=== PATIENT | female | born 1945 | race Caucasian/White ===

== ENCOUNTER 2019-02-27 14:32 | Emergency (ER) | payer OTHER, SELFPAY ==
[2019-02-27 14:35] VITALS: BP 167/63; PULSE 117; RESP 18; TEMP 36.9; O2SAT 95; BMI 25.7
--- NOTE | 2019-02-27 14:48 | ED.BACK ---
HPI - Back Pain/Injury General Chief Complaint: Back Pain/Injury Stated Complaint: Muscle spasms through back and into waist Time Seen by Provider: 02/27/19 14:42 Source: patient Mode of arrival: ambulatory Limitations: no limitations History of Present Illness HPI Narrative: This is a 73-year-old female comes to the emergency department with complaint of back spasms. Patient states her upper back as well as her lower back. It is all over. Started initially in her right shoulder but now can be sometimes crossing over to the left side and vice versa. Patient describes it almost has an ex across her back but it is intermittent in various locations and then her symptoms will resolve and show up and a new spot. She states she will lay down in bed use hot packs a electric blanket and sometimes it will resolve and then she will start moving around again. She denies any new weakness other than pain with movement at times. She denies any new falls or injuries. She has had back surgery in the past but states this is not similar to that at all and it is patchy areas of pain. Related Data Previous Rx's Medication Instructions Recorded diazepam [Valium] 2 mg PO TID PRN #10 tab 02/27/19 Allergies Allergy/AdvReac Type Severity Reaction Status Date / Time Fish Containing Products Allergy Severe Anaphylaxis Verified 02/27/19 14:49 Sulfa (Sulfonamide Allergy Verified 02/27/19 14:49 Antibiotics) Review of Systems Review of Systems ROS Unobtainable: All systems reviewed & are unremarkable except as noted in HPI and below Constitutional Denies chills, Denies fever(s), Denies lethargy and Denies weakness Cardiovascular Denies chest pain, Denies edema, Denies irregular heart rhythm, Denies lightheadedness, Denies palpitations, Denies dyspnea and Denies orthopnea Respiratory Denies dyspnea Gastrointestinal Gastrointestinal: Denies abdominal pain, Denies melena, Denies hematochezia, Denies change in bowel habits, Denies diarrhea, Denies nausea and Denies vomiting Genitourinary Denies hematuria, Denies flank pain, Denies urinary incontinence and Denies urinary urgency Musculoskeletal Reports as per HPI, Denies abnormal gait, Reports back pain (all over), Reports myalgias, Reports arthralgias (shoulders, neck), Denies joint swelling, Reports limited range of motion (when in pain, but not always), Reports muscle cramps, Denies muscle weakness, Denies numbness, Denies radiating pain into limb, Reports stiffness and Denies tingling Integumentary/Breasts Denies rash, Denies unusual bruising and Denies wounds Neurologic Denies abnormal gait, Denies numbness, Denies tingling and Denies weakness Endocrine Denies palpitations [facility] Medical History (Updated 02/27/19 @ 17:09 by Luana Jacobo DO) Prediabetes (Chronic) Social History Smoking Status: Former smoker Social History Smoking Status: Former smoker Exam Narrative Exam Narrative: GEN: well nourished, well appearing elderly female, alert and oriented x 3, patient appears to be in moderate distress. HEENT: Atraumatic, pupils are equal round reactive, extraocular movements are intact, nares are clear. HEART: Regular rate and rhythm without murmur, clicks, rubs. Pulses are equal in upper extremities LUNGS:Lungs clear to auscultation, no wheezes, rales, crackles, chest moves symmetrically ABD:bowel sounds normal, soft, non-tender, no guarding, rebound, rigidity, no masses noted, no hepatosplenomegaly :No CVA tenderness BACK: No cervical, thoracic or lumbar vertebral point tenderness. Patient has decreased range of motion. Patient prefers to sit very upright. Patient's gait is [antalgic/normal]. MSCL: Non-tender, no muscle atrophy, muscles strength 5/5 upper and lower extremities, full range of motion. NEURO:CN 2-12 intact, sensation normal, reflexes 2/4 upper and lower extremities Initial Vital Signs Initial Vital Signs: Vital Signs Temperature 98.4 F 02/27/19 14:35 Pulse Rate 117 H 02/27/19 14:35 Respiratory Rate 18 02/27/19 14:35 Blood Pressure 167/63 H 02/27/19 14:35 Pulse Oximetry 95 02/27/19 14:35 Scores GCS [place] coma scale eye opening: Spontaneous [place] coma scale verbal response: Orientated [place] coma scale motor response: Obey commands Jeff coma scale total score: 15 Course Orders Ordered: ED Orders 02/27/19 15:08 XR chest 1V Stat 02/27/19 15:25 Complete Blood Count AUTO DIFF Stat Comprehensive Metabolic Panel Stat Creatine Kinase Stat Magnesium Stat Phosphorous Stat Prothrombin Time INR Stat Discontinued Medications Diazepam (Valium) 2 mg PO NOW ONE Stop: 02/27/19 15:14 Last Admin: 02/27/19 15:46 Dose: 2 mg Vital Signs - 8 hr 02/27/19 14:35 02/27/19 17:21 Temperature 98.4 F Pulse Rate 117 H 90 Respiratory Rate 18 15 Blood Pressure 167/63 H Blood Pressure [Right Arm] 149/68 H Pulse Oximetry 95 96 MDM - Back Pain/Injury Lab Data Attestation: I reviewed the patient's lab results. Result diagrams: 02/27/19 15:25 02/27/19 15:25 Lab Results 02/27/19 02/27/19 02/27/19 Range/Units 15:25 15:25 15:25 WBC 15.4 H (4.5-11.0) X10^3/uL RBC 5.06 (4.0-5.2) X10^6/uL Hgb 14.3 (12.0-16.0) g/dL Hct 43.3 (36-46) % MCV 85.5 (80-100) fL MCH 28.3 (26-34) PG MCHC 33.1 (30-36) % RDW 13.5 (11.6-14.8) % Plt Count 486 H (150-400) X10^3/uL Neut % (Auto) 77.3 H (50-75) % Lymph % (Auto) 12.3 L (25-40) % [place] % (Auto) 9.2 (3-14) % Eos % (Auto) 0.6 L (2-4) % Baso % (Auto) 0.6 (0-2) % Neut # (Auto) 77575 H (7293-4190) /uL Lymph # (Auto) 1900 (7966-0396) /uL [place] # (Auto) 1400 H (0-900) /uL Eos # (Auto) 100 (0-450) /uL Baso # (Auto) 100 (0-100) /uL PT 72.7 H (10.1-12.7) SECONDS INR 6.0 H* (0.9-1.3) Sodium 136 L (137-145) mmol/L Potassium 3.6 (3.4-5.1) mmol/L Chloride 92 L (98-107) mmol/L Carbon Dioxide 31 (22-32) mmol/L BUN 16 (7-17) mg/dL Creatinine 0.80 (0.52-1.04) mg/dL Estimated GFR > 60.0 (>60) mL/min BUN/Creatinine Ratio 20.0 (6-22) Glucose 128 H (80-110) mg/dL Calcium 10.2 (8.4-10.2) mg/dL Phosphorus 2.7 L (2.8-4.1) mg/dL Magnesium 1.8 (1.6-2.3) mg/dL Total Bilirubin 0.7 (0.2-1.3) mg/dL AST 42 H (14-36) IU/L ALT 36 (9-52) IU/L Alkaline Phosphatase 96 (38-126) U/L Total Creatine Kinase 57 (30-135) U/L Total Protein 7.9 (6.3-8.2) g/dL Albumin 4.5 (3.5-5.0) g/dL Globulin 3.4 (1.7-4.1) g/dL Albumin/Globulin Ratio 1.3 (1.0-2.8) Imaging Data Chest x-ray: Radiologist's impression: [address] [address] XRay Report Signed Patient: Gloria Obregon KMR#: [id number] : 4Acct:[id number] Age/Sex: 73 / FDate of Service: 02/27/19 Loc: ED Accession Number: [id number] Procedure: XR chest 1V Ordering Provider: Luana Jacobo D.O. PROCEDURE: XR CHEST 1V INDICATIONS: muscle spasms all over back TECHNIQUE: One view of the chest was acquired. COMPARISON: None. 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 Mammoplasty implants are incidentally noted. Lungs and pleura: Lungs are clear. No pleural effusions or pneumothorax. Mediastinum: Mediastinal contours appear normal. Heart size is normal. Atherosclerotic calcification of the aortic arch is noted. Bones and chest wall: No suspicious bony lesions. Age-appropriate bony degenerative changes are seen. Overlying soft tissues appear unremarkable. IMPRESSION: No acute cardiopulmonary process is seen. Postoperative and degenerative changes are seen. Dictated by: Montana Terrazas M.D. on 02/27/2019 at 15:10 Approved by: Montana Terrazas M.D. on 02/27/2019 at 15:11 [facility] Narrative Medical decision making narrative: Patient is complaining of significant muscle spasms but in various locations in her back and sort of muscle aching. 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 Patient has not had any acute muscle changes. She is on a statin but has been taking this for about 20 years. Patient has not had any trauma or injuries. She has history of back pain but she states this is sort of spotting in all over and is not consistent with any sort of dermatomal or nerve pattern. Plan for labs including CBC CMP CPK and Mag and Phos. Patient states she was told her Vitamin D level was toxic and she has stopped taking it. She has taken Tylenol 1000 mg twice in the past month taking codeine once. She states the codeine made her fall asleep so she isn't sure if it worked. Patient's lab work showed elevated white count of 15 with elevated platelets and drip feels of 77%. Coags show an INR of 6. Patient states her last check was 3.2 but she states that she is sensitive to dietary changes. Sodium is 136 chloride 92, her glucose is 128 with a phos of 2.7. AST is slightly elevated at 42 otherwise labs are normal. Patient's CPK is only 57. She has not had any trauma or other injuries, she does not have any neurologic changes. Her only description is spasm me discomfort throughout her back I have no source for infection or other likely causes such as bleeding that would cause these types of symptoms in such a wide range of areas on her back only. Discussed with patient she stated she would initially just decrease her Coumadin to 1 mg daily and we discussed that she really needs to stop it for at least the next 2 days. I asked her to follow up to get her INR rechecked. We did discuss that the Valium can increase her fall risk. We discussed the importance of her stopping her Coumadin with her as well as her brother. Discharge Plan Departure Patient Disposition: Home Clinical Impression: Muscle spasm of back, Supratherapeutic INR Discharge Date/Time: 02/27/19 17:29 Interventions: ED Discharge Assessment Last Done: 02/27/19 17:29 Instructions: DI for Back Spasm Activity Restrictions/Additional Instructions: Follow up with your physician in the next 2-3 days for recheck and further workup. Your INR is supratherapeutic at 6 today. Stop your Coumadin for the next 2 days, get an INR recheck and then restart as prescribed by your physician. If you hit your head, have sudden severe headaches or any other new changes return to the ER immediately for imaging. Take medication as prescribed, this medication can make you sleepy so take extra precautions to prevent falls. Do not drive, perform hazardous activities or make any major decisions while taking this medication. Return to the ER for fevers greater than 100.4 F, sudden severe headaches, altered mental status, persistent vomiting, new chest pain, shortness of breath, new weakness or numbness, loss of bowel or bladder control or other new or concerning symptoms. Prescriptions: New diazepam [Valium] 2 mg tablet 2 mg PO TID PRN (Reason: muscle spasm) Qty: 10 RF: 0
--- NOTE | 2019-02-27 15:08 | DI.RAD.S_ITS ---
PROCEDURE: XR CHEST 1V INDICATIONS: muscle spasms all over back TECHNIQUE: One view of the chest was acquired. COMPARISON: None. 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 Mammoplasty implants are incidentally noted. Lungs and pleura: Lungs are clear. No pleural effusions or pneumothorax. Mediastinum: Mediastinal contours appear normal. Heart size is normal. Atherosclerotic calcification of the aortic arch is noted. Bones and chest wall: No suspicious bony lesions. Age-appropriate bony degenerative changes are seen. Overlying soft tissues appear unremarkable. IMPRESSION: No acute cardiopulmonary process is seen. Postoperative and degenerative changes are seen. Dictated by: Montana Terrazas M.D. on 02/27/2019 at 15:10 Approved by: Montana Terrazas M.D. on 02/27/2019 at 15:11
--- NOTE | 2019-02-27 15:13 | ED_ITS ---
HPI - Back Pain/Injury General Chief Complaint: Back Pain/Injury Stated Complaint: Muscle spasms through back and into waist Time Seen by Provider: 02/27/19 14:42 Source: patient Mode of arrival: ambulatory Limitations: no limitations History of Present Illness HPI Narrative: This is a 73-year-old female comes to the emergency department with complaint of back spasms. Patient states her upper back as well as her lower back. It is all over. Started initially in her right shoulder but now can be sometimes crossing over to the left side and vice versa. Patient describes it almost has an ex across her back but it is intermittent in various locations and then her symptoms will resolve and show up and a new spot. She states she will lay down in bed use hot packs a electric blanket and sometimes it will resolve and then she will start moving around again. She denies any new weakness other than pain with movement at times. She denies any new falls or injuries. She has had back surgery in the past but states this is not similar to that at all and it is patchy areas of pain. Related Data Previous Rx's Medication Instructions Recorded diazepam [Valium] 2 mg PO TID PRN #10 tab 02/27/19 Allergies Allergy/AdvReac Type Severity Reaction Status Date / Time Fish Containing Products Allergy Severe Anaphylaxis Verified 02/27/19 14:49 Sulfa (Sulfonamide Allergy Verified 02/27/19 14:49 Antibiotics) Review of Systems Review of Systems ROS Unobtainable: All systems reviewed & are unremarkable except as noted in HPI and below Constitutional Denies chills, Denies fever(s), Denies lethargy and Denies weakness Cardiovascular Denies chest pain, Denies edema, Denies irregular heart rhythm, Denies lightheadedness, Denies palpitations, Denies dyspnea and Denies orthopnea Respiratory Denies dyspnea Gastrointestinal Gastrointestinal: Denies abdominal pain, Denies melena, Denies hematochezia, Denies change in bowel habits, Denies diarrhea, Denies nausea and Denies vomiting Genitourinary Denies hematuria, Denies flank pain, Denies urinary incontinence and Denies urinary urgency Musculoskeletal Reports as per HPI, Denies abnormal gait, Reports back pain (all over), Reports myalgias, Reports arthralgias (shoulders, neck), Denies joint swelling, Reports limited range of motion (when in pain, but not always), Reports muscle cramps, Denies muscle weakness, Denies numbness, Denies radiating pain into limb, Rep orts stiffness and Denies tingling Integumentary/Breasts Denies rash, Denies unusual bruising and Denies wounds Neurologic Denies abnormal gait, Denies numbness, Denies tingling and Denies weakness Endocrine Denies palpitations [facility] Medical History (Updated 02/27/19 @ 17:09 by Luana Jacobo DO) Prediabetes (Chronic) Social History Smoking Status: Former smoker Social History Smoking Status: Former smoker Exam Narrative Exam Narrative: GEN: well nourished, well appearing elderly female, alert and oriented x 3, patient appears to be in moderate distress. HEENT: Atraumatic, pupils are equal round reactive, extraocular movements are intact, nares are clear. HEART: Regular rate and rhythm without murmur, clicks, rubs. Pulses are equal in upper extremities LUNGS:Lungs clear to auscultation, no wheezes, rales, crackles, chest moves symmetrically ABD:bowel sounds normal, soft, non-tender, no guarding, rebound, rigidity, no masses noted, no hepatosplenomegaly :No CVA tenderness BACK: No cervical, thoracic or lumbar vertebral point tenderness. Patient has decreased range of motion. Patient prefers to sit very upright. Patient's gait is [antalgic/normal]. MSCL: Non-tender, no muscle atrophy, muscles strength 5/5 upper and lower extremities, full range of motion. NEURO:CN 2-12 intact, sensation normal, reflexes 2/4 upper and lower extremities Initial Vital Signs Initial Vital Signs: Vital Signs Temperature 98.4 F 02/27/19 14:35 Pulse Rate 117 H 02/27/19 14:35 Respiratory Rate 18 02/27/19 14:35 Blood Pressure 167/63 H 02/27/19 14:35 Pulse Oximetry 95 02/27/19 14:35 Scores GCS [place] coma scale eye opening: Spontaneous [place] coma scale verbal response: Orientated [place] coma scale motor response: Obey commands [place] coma scale total score: 15 Course Orders Ordered: ED Orders 02/27/19 15:08 XR chest 1V Stat 02/27/19 15:25 Complete Blood Count AUTO DIFF Stat Comprehensive Metabolic Panel Stat Creatine Kinase Stat Magnesium Stat Phosphorous Stat Prothrombin Time INR Stat Discontinued Medications Diazepam (Valium) 2 mg PO NOW ONE Stop: 02/27/19 15:14 Last Admin: 02/27/19 15:46 Dose: 2 mg Vital Signs - 8 hr 02/27/19 14:35 02/27/19 17:21 Temperature 98.4 F Pulse Rate 117 H 90 Respiratory Rate 18 15 Blood Pressure 167/63 H Blood Pressure [Right Arm] 149/68 H Pulse Oximetry 95 96 MDM - Back Pain/Injury Lab Data Attestation: I reviewed the patient's lab results. Result diagrams: 02/27/19 15:25 02/27/19 15:25 Lab Results 02/27/19 02/27/19 02/27/19 Range/Units 15:25 15:25 15:25 WBC 15.4 H (4.5-11.0) X10^3/uL RBC 5.06 (4.0-5.2) X10^6/uL Hgb 14.3 (12.0-16.0) g/dL Hct 43.3 (36-46) % MCV 85.5 (80-100) fL MCH 28.3 (26-34) PG MCHC 33.1 (30-36) % RDW 13.5 (11.6-14.8) % Plt Count 486 H (150-400) X10^3/uL Neut % (Auto) 77.3 H (50-75) % Lymph % (Auto) 12.3 L (25-40) % [place] % (Auto) 9.2 (3-14) % Eos % (Auto) 0.6 L (2-4) % Baso % (Auto) 0.6 (0-2) % Neut # (Auto) 84167 H (1288-4636) /uL Lymph # (Auto) 1900 (7922-3695) /uL [place] # (Auto) 1400 H (0-900) /uL Eos # (Auto) 100 (0-450) /uL Baso # (Auto) 100 (0-100) /uL PT 72.7 H (10.1-12.7) SECONDS INR 6.0 H* (0.9-1.3) Sodium 136 L (137-145) mmol/L Potassium 3.6 (3.4-5.1) mmol/L Chloride 92 L (98-107) mmol/L Carbon Dioxide 31 (22-32) mmol/L BUN 16 (7-17) mg/dL Creatinine 0.80 (0.52-1.04) mg/dL Estimated GFR > 60.0 (>60) mL/min BUN/Creatinine Ratio 20.0 (6-22) Glucose 128 H (80-110) mg/dL Calcium 10.2 (8.4-10.2) mg/dL Phosphorus 2.7 L (2.8-4.1) mg/dL Magnesium 1.8 (1.6-2.3) mg/dL Total Bilirubin 0.7 (0.2-1.3) mg/dL AST 42 H (14-36) IU/L ALT 36 (9-52) IU/L Alkaline Phosphatase 96 (38-126) U/L Total Creatine Kinase 57 (30-135) U/L Total Protein 7.9 (6.3-8.2) g/dL Albumin 4.5 (3.5-5.0) g/dL Globulin 3.4 (1.7-4.1) g/dL Albumin/Globulin Ratio 1.3 (1.0-2.8) Imaging Data Chest x-ray: Radiologist's impression: [place] [address] XRay Report Signed Patient: Gloria Obregon KMR#: [id number] : 4Acct:[id number] Age/Sex: 73 / FDate of Service: 02/27/19 Loc: ED Accession Number: [id number] Procedure: XR chest 1V Ordering Provider: Luana Jacobo D.O. PROCEDURE: XR CHEST 1V INDICATIONS: muscle spasms all over back TECHNIQUE: One view of the chest was acquired. COMPARISON: None. 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 Mammoplasty implants are incidentally noted. Lungs and pleura: Lungs are clear. No pleural effusions or pneumothorax. Mediastinum: Mediastinal contours appear normal. Heart size is normal. Atherosclerotic calcification of the aortic arch is noted. Bones and chest wall: No suspicious bony lesions. Age-appropriate bony degenerative changes are seen. Overlying soft tissues appear unremarkable. IMPRESSION: No acute cardiopulmonary process is seen. Postoperative and degenerative changes are seen. Dictated by: Montana Terrazas M.D. on 02/27/2019 at 15:10 Approved by: Montana Terrazas M.D. on 02/27/2019 at 15:11 [facility] Narrative Medical decision making narrative: Patient is complaining of significant muscle spasms but in various locations in her back and sort of muscle aching. 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 Patient has not had any acute muscle changes. She is on a statin but has been taking this for about 20 years. Patient has not had any trauma or injuries. She has history of back pain but she states this is sort of spotting in all over and is not consistent with any sort of dermatomal or nerve pattern. Plan for labs including CBC CMP CPK and Mag and Phos. Patient states she was told her Vitamin D level was toxic and she has stopped taking it. She has taken Tylenol 1000 mg twice in the past month taking codeine once. She states the codeine made her fall asleep so she isn't sure if it worked. Patient's lab work showed elevated white count of 15 with elevated platelets and drip feels of 77%. Coags show an INR of 6. Patient states her last check was 3.2 but she states that she is sensitive to dietary changes. Sodium is 136 chloride 92, her glucose is 128 with a phos of 2.7. AST is slightly elevated at 42 otherwise labs are normal. Patient's CPK is only 57. She has not had any trauma or other injuries, she does not have any neurologic changes. Her only description is spasm me discomfort throughout her back I have no source for infection or other likely causes such as bleeding that would cause these types of symptoms in such a wide range of areas on her back only. Discussed with patient she stated she would initially just decrease her Coumadin to 1 mg daily and we discussed that she really needs to stop it for at least the next 2 days. I asked her to follow up to get her INR rechecked. We did discuss that the Valium can increase her fall risk. We discussed the importance of her stopping her Coumadin with her as well as her brother. Discharge Plan Departure Patient Disposition: Home Clinical Impression: Muscle spasm of back, Supratherapeutic INR Discharge Date/Time: 02/27/19 17:29 Interventions: ED Discharge Assessment Last Done: 02/27/19 17:29 Instructions: DI for Back Spasm Activity Restrictions/Additional Instructions: Follow up with your physician in the next 2-3 days for recheck and further workup. Your INR is supratherapeutic at 6 today. Stop your Coumadin for the next 2 days, get an INR recheck and then restart as prescribed by your physician. If you hit your head, have sudden severe headaches or any other new changes return to the ER immediately for imaging. Take medication as prescribed, this medication can make you sleepy so take extra precautions to prevent falls. Do not drive, perform hazardous activities or make any major decisions while taking this medication. Return to the ER for fevers greater than 100.4 F, sudden severe headaches, altered mental status, persistent vomiting, new chest pain, shortness of breath, new weakness or numbness, loss of bowel or bladder control or other new or concerning symptoms. Prescriptions: New diazepam [Valium] 2 mg tablet 2 mg PO TID PRN (Reason: muscle spasm) Qty: 10 RF: 0
[2019-02-27 15:36] LABS: Add Manual Diff / Slide Review NO; Basophils Absolute Auto 100 /uL (0-100); Basophils Percent Auto 0.6 % (0-2); Eosinophils Absolute Auto 100 /uL (0-450); Eosinophils Percent Auto 0.6 % (2-4); Hematocrit 43.3 % (36-46); Hemoglobin 14.3 g/dL (12.0-16.0); Lymphocytes Absolute Auto 1900 /uL (1100-4500); Lymphocytes Percent Auto 12.3 % (25-40); Mean Corpuscular HGB Conc 33.1 % (30-36); Mean Corpuscular Hemoglobin 28.3 PG (26-34); Mean Corpuscular Volume 85.5 fL (80-100); Monocytes Absolute Auto 1400 /uL (0-900); Monocytes Percent Auto 9.2 % (3-14); Neutrophils Absolute Auto 11900 /uL (1500-7000); Neutrophils Percent Auto 77.3 % (50-75); Platelet Count 486 X10^3/uL (150-400); Red Blood Cell Count 5.06 X10^6/uL (4.0-5.2); Red Cell Distribution Width 13.5 % (11.6-14.8); White Blood Cell Count 15.4 X10^3/uL (4.5-11.0)
[2019-02-27] MEDS: diazePAM 2 MG TABLET PO (15:46)
[2019-02-27 15:51] LABS: Alanine Aminotransferase 36 IU/L (9-52); Albumin 4.5 g/dL (3.5-5.0); Albumin Globulin Ratio 1.3 (1.0-2.8); Alkaline Phosphatase 96 U/L (38-126); Aspartate Aminotransferase 42 IU/L (14-36); Bilirubin Total 0.7 mg/dL (0.2-1.3); Blood Urea Nitrogen 16 mg/dL (7-17); Calcium 10.2 mg/dL (8.4-10.2); Carbon Dioxide 31 mmol/L (22-32); Chloride 92 mmol/L (98-107); Creatine Kinase 57 U/L (30-135); Estimated Glomerular Filt Rate > 60.0 mL/min (>60); Globulin 3.4 g/dL (1.7-4.1); Glucose 128 mg/dL (80-110); HEMOLYSIS < 15 (0-50); Magnesium 1.8 mg/dL (1.6-2.3); Phosphorous 2.7 mg/dL (2.8-4.1); Potassium 3.6 mmol/L (3.4-5.1); Sodium 136 mmol/L (137-145); Total Protein 7.9 g/dL (6.3-8.2)
[2019-02-27 15:53] LABS: Prothrombin Time 72.7 SECONDS (10.1-12.7)
[2019-02-27 17:21] VITALS: BP 149/68; PULSE 90; RESP 15; O2SAT 96
== END 2019-02-27 17:29 | disposition home or self-care (01) ==
PROVIDERS: Emergency Provider Emergency Medicine
DX: M62.830 Muscle spasm of back (principal); R79.1 Abnormal coagulation profile
CPT/HCPCS: 36415; 71045; 80053; 82550; 83735; 84100; 85025; 85610; 99282; 99284

== ENCOUNTER 2020-01-07 09:59 | Emergency (ER) | payer MEDICARE, SELFPAY ==
[2020-01-07 10:09] VITALS: BP 180/77; PULSE 86; RESP 21; TEMP 36.7; O2SAT 96; BMI 27.4
[2020-01-07 10:44] LABS: INR 3.3 (0.9-1.3); Prothrombin Time 37.7 SECONDS (10.1-12.7)
--- NOTE | 2020-01-07 11:21 | ED.WOUNDLAC ---
HPI - Wound/Laceration General Chief Complaint: Wound/Laceration Stated Complaint: Right finger laceration Time Seen by Provider: 01/07/20 10:49 Source: patient Mode of arrival: Ambulatory Limitations: no limitations History of Present Illness HPI narrative: CC: Continuous bleeding injury to right little finger HPI: Patient is a 74-year-old female who states that she has an aortic valve replacement for which she is on Coumadin for the last 20 years. Yesterday she was closing a suitcase who latch with difficulty molar surface of her right little finger in the latch amputating the soft tissue. She states that she has had continuous bleeding and oozing since then so she came into the emergency department to be further evaluated. She admits to a history of COPD and is a former smoker. She does not drink alcohol or use any drugs or marijuana. 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 She denies a history of myocardial infarction congestive heart failure hypertension diabetes mellitus. Related Data Previous Rx's Medication Instructions Recorded diazepam [Valium] 2 mg PO TID PRN #10 tab 02/27/19 Allergies Allergy/AdvReac Type Severity Reaction Status Date / Time Fish Containing Products Allergy Severe Anaphylaxis Verified 02/27/19 14:49 Sulfa (Sulfonamide Allergy Verified 02/27/19 14:49 Antibiotics) Review of Systems Review of Systems Narrative: REVIEW OF SYSTEMS: CONSTITUTIONAL: She denies any fever chills or sweats NEUROLOGICAL: She has had no headache abnormal behavior numbness tingling paresthesias anesthesia is paresis or paralysis EENT: She denies any sore throat trouble swallowing CARDIO-PULMONARY: No chest pain cough shortness of breath difficulty in breathing GASTROINTESTINAL: No abdominal pain nausea vomiting diarrhea melena hematochezia GENITAL URINARY: No urinary symptoms. MUSCULOSKELETAL/ RHEUMATOLOGICAL: She denies any other back injury back pain or any other pain Patient History Medical History Prediabetes (Chronic) Social History Smoking Status: Former smoker Smoking Status: Former smoker alcohol intake frequency: 0-2 drinks per day Substance Use Type: does not use Exam Narrative Exam Narrative: PHYSICAL EXAM: CONSTITUTIONAL: Awake, Alert, Oriented, Coherent, Cooperative in NAD. Does not appear toxic or ill. HEAD: AT/NC EENT: PERRL, FROM of eyes, no discharge, no nystagmus NECK: Supple, no obvious JVD, Trachea is midline without stridor, LUNGS: Clear, symmetrical breath sounds without respiratory distress. HEART: Normal heart tones, regular rhythm and rate without murmur. EXTREMITIES: The patient has approximately a 0.75 diameter soft tissue amputation of the pulp of the distal phalanx right little finger volar surface. It continues to bleed slowly. SKIN: No rash, bruising, petechiae or purpura. NEURO: Awake, alert, oriented, conversive, cranial nerves II-XII are symmetrical , moves all 4 extremities and is ambulatory. Initial Vital Signs Initial Vital Signs: Vital Signs Temperature 98.0 F 01/07/20 10:09 Pulse Rate 86 01/07/20 10:09 Respiratory Rate 21 01/07/20 10:09 Blood Pressure 180/77 H 01/07/20 10:09 Pulse Oximetry 96 01/07/20 10:09 Course Course Course Narrative: 11:15 Procedure note: A rubber band was used as a tourniquet on the patient's right little finger. The amputation of the soft tissue and skin off the tip of the right little finger was cleansed with saline and pressure applied to the wound to milk the venous blood away. Dermabond was then applied over the surface of the amputation and bleeding ceased. The patient was informed that her INR was 3.3. She was advised to hold tonight's dose of Coumadin/warfarin and then resume her dosage and follow-up with her physician or coagulation clinic to adjust her warfarin dose. She was advised that if she develops any signs of infection redness or increased bleeding she needs to return to the emergency department for re-evaluation. She was advised to hold pressure on the bleeding site for 45-60 minutes before releasing it. She was advised that normal bleeding stops usually within 20 minutes. We hold pressure on it when on anticoagulants for 2-3 times the normal bleeding time. Orders Ordered: ED Orders 01/07/20 10:28 PT [Prothrombin Time INR] Stat Vital Signs Vital signs: Vital Signs - 8 hr 01/07/20 10:09 Temperature 98.0 F Pulse Rate 86 Respiratory Rate 21 Blood Pressure 180/77 H Pulse Oximetry 96 MDM - Wound/Laceration Lab Data Labs: Lab Results 01/07/20 Range/Units 10:28 PT 37.7 H (10.1-12.7) SECONDS INR 3.3 H (0.9-1.3) Discharge Plan Departure Patient Disposition: Home Clinical Impression: Avulsion of skin Discharge Date/Time: 01/07/20 11:45 Instructions: How to Care for a Laceration After Repair, DI for Wound Infection Activity Restrictions/Additional Instructions: 1. You have amputated the soft tissue of the tip of your right little finger. It appears to primarily involve skin. The injury has been covered with Dermabond and should stop the bleeding. 2. If bleeding recurs hold direct pressure directly over the bleeding site for 40 minutes to 60 minutes to stop the bleeding. 3. If you develop redness or signs of infection you need to return either to the emergency department or follow-up with your primary care physician. Keep it clean and dry for the next 48 hours. Do not soak it in water which will soften and loosen the Dermabond. 4.Hold tonight's dose of warfarin/Coumadin and resume it tomorrow. Follow-up with the [facility]in [facility] or your primary care physician to adjust the Coumadin dosage. 5. Keep this injury site covered with a bandage but do not apply any antibiotic ointment over the Dermabond. Prescriptions: No Action diazepam [Valium] 2 mg tablet 2 mg PO TID PRN (Reason: muscle spasm) Qty: 10 RF: 0
== END 2020-01-07 11:45 | disposition home or self-care (01) ==
PROVIDERS: Emergency Provider Emergency Medicine
DX: S61.216A Laceration without foreign body of right little finger without damage to nail, initial encounter (principal); W45.8XXA Other foreign body or object entering through skin, initial encounter; Z95.5 Presence of coronary angioplasty implant and graft; Z79.01 Long term (current) use of anticoagulants
CPT/HCPCS: 36415; 85610; 99282

== ENCOUNTER 2020-02-11 03:09 | Emergency (ER) | payer MEDICARE, SELFPAY ==
[2020-02-11 03:15] VITALS: BP 169/81; PULSE 100; RESP 19; TEMP 36.9; O2SAT 97; BMI 27.4
--- NOTE | 2020-02-11 03:42 | DI.CT.S_ITS ---
PROCEDURE: CT LE LT W CON INDICATIONS: severe pain, recent trauma, on coumadin, ? large hematoma? TECHNIQUE: After the administration of intravenous contrast, 3 mm axial sections acquired of the left tibia and fibula , with coronal and sagittal reformats. COMPARISON: None. FINDINGS: Image quality: Excellent. Bones: No displaced fractures are seen. No suspicious lytic or blastic lesions are seen. Age-appropriate bony degenerative changes are seen. Soft tissues: Along the lateral aspect of the proximal soft tissues, just lateral to the tibia, there is a focal subcutaneous nodule seen just superficial to the musculature that measures 2.3 x 3.3 cm and greatest axial dimension, with a craniocaudal extent of 4.4 cm. This nodule is hyperdense, measuring approximately 60 Hounsfield units inferiorly. There is a fluid fluid level seen within it. No soft tissue gas is seen. IMPRESSION: Soft tissue nodule seen involving the soft tissues of the left proximal haile laterally, which is attributed to a hematoma, given the history. No fractures are seen. Note: No significant discrepancy from the preliminary report. Dictated by: Montana Terrazas M.D. on 02/11/2020 at 7:48 Approved by: Montana Terrazas M.D. on 02/11/2020 at 7:52
[2020-02-11 03:53] LABS: Add Manual Diff / Slide Review NO; Basophils Absolute Auto 100 /uL (0-100); Basophils Percent Auto 0.5 % (0-2); Eosinophils Absolute Auto 500 /uL (0-450); Eosinophils Percent Auto 3.9 % (2-4); Hematocrit 40.4 % (36-46); Hemoglobin 13.7 g/dL (12.0-16.0); Lymphocytes Absolute Auto 3000 /uL (1100-4500); Lymphocytes Percent Auto 23.7 % (25-40); Mean Corpuscular HGB Conc 33.9 % (30-36); Mean Corpuscular Hemoglobin 28.6 PG (26-34); Mean Corpuscular Volume 84.4 fL (80-100); Monocytes Absolute Auto 1400 /uL (0-900); Neutrophils Absolute Auto 7700 /uL (1500-7000); Neutrophils Percent Auto 60.9 % (50-75); Platelet Count 281 X10^3/uL (150-400); Red Blood Cell Count 4.78 X10^6/uL (4.0-5.2); Red Cell Distribution Width 13.5 % (11.6-14.8); White Blood Cell Count 12.6 X10^3/uL (4.5-11.0)
[2020-02-11 03:54] LABS: INR 2.6 (0.9-1.3); Prothrombin Time 29.3 SECONDS (10.1-12.7)
[2020-02-11 04:02] LABS: Alanine Aminotransferase 26 IU/L (<35); Albumin 4.5 g/dL (3.5-5.0); Albumin Globulin Ratio 1.7 (1.0-2.8); Alkaline Phosphatase 83 U/L (38-126); Aspartate Aminotransferase 39 IU/L (14-36); BUN Creatinine Ratio 18.8 (6-22); Bilirubin Total 0.7 mg/dL (0.2-1.3); Blood Urea Nitrogen 15 mg/dL (7-17); Calcium 9.8 mg/dL (8.4-10.2); Carbon Dioxide 28 mmol/L (22-32); Chloride 98 mmol/L (98-107); Estimated Glomerular Filt Rate > 60.0 mL/min (>60); Globulin 2.7 g/dL (1.7-4.1); Glucose 131 mg/dL (80-110); HEMOLYSIS < 15 (0-50); Potassium 3.5 mmol/L (3.4-5.1); Sodium 135 mmol/L (137-145); Total Protein 7.2 g/dL (6.3-8.2)
--- NOTE | 2020-02-11 04:03 | ED.LOWEXIN ---
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 She was seen at the [facility] and x-rays were done confirming no fracture. She has been able to walk on the leg but over the last 3 days it has gotten progressively more painful. She has significantly more swelling in the lower extremity and is having difficulty walking at all at this time. Lower extremity is significantly more swollen with an obvious large amount of bleeding into the calf. Multiple very large bruises on her right elbow left hip left ankle as well as into the calf, she does note that frequent and severe bruising is common given her Coumadin use. In severe pain but declining all pain medication. Related Data Previous Rx's Medication Instructions Recorded diazepam [Valium] 2 mg PO TID PRN #10 tab 02/27/19 Allergies Allergy/AdvReac Type Severity Reaction Status Date / Time Fish Containing Products Allergy Severe Anaphylaxis Verified 02/27/19 14:49 Sulfa (Sulfonamide Allergy Verified 02/27/19 14:49 Antibiotics) Review of Systems Review of Systems Narrative: Pertinent positive and negative findings as per HPI Remainder of review of systems is otherwise unremarkable for Constitutional: Fevers, chills, weakness ENT: No sore throat, neck pain, ear pain CV: Chest pain, palpitations, dyspnea on exertion Respiratory: Cough, wheeze, dyspnea GI: Nausea, vomiting, diarrhea, change in bowel habits, black or bloody stools : Dysuria, hematuria, flank pain Skin: Rashes, nonhealing lesions Neuro: Syncope, dizziness, tingling Patient History Medical History Prediabetes (Chronic) Surgical History Aortic valve replaced (Acute) Social History Smoking Status: Former smoker Smoking Status: Former smoker alcohol intake frequency: 0-2 drinks per day Substance Use Type: does not use Exam Narrative Exam Narrative: General: Healthy appearing, left lower extremity is hurting. Able to give a complete and rambling history. Well-nourished well-developed HEENT: Moist mucous membranes, normal sclera with reactive pupils, Neck: No JVD, supple Respiratory: Lungs are clear to auscultation, no wheezing no rales no rhonchi. Full and symmetrical air movement Cardiac: Regular rate and rhythm no murmurs no bruits, metallic click Abdomen: Soft nontender good bowel tones, no flank pain Skin: Warm and dry, no rashes. Large bruise to the right elbow left upper hip developing bruise over the left ankle and skin discoloration suggestive of a deeper hematoma over the anterior haile Neurologic: Grossly neurologically intact with no obvious asymmetries or abnormalities Extremities: Left calf significantly larger than right with palpable dorsalis pedis pulse. Posterior tibialis is not palpable. While swollen, the calf itself is not significantly tense to suggest developing compartment syndrome Psych: Cooperative, appropriate insight and affect Initial Vital Signs Initial Vital Signs: Vital Signs Temperature 98.4 F 02/11/20 03:15 Pulse Rate 100 H 02/11/20 03:15 Respiratory Rate 19 02/11/20 03:15 Blood Pressure 169/81 H 02/11/20 03:15 Pulse Oximetry 97 02/11/20 03:15 Course Orders Ordered: ED Orders 02/11/20 03:30 Complete Blood Count AUTO DIFF Stat Comprehensive Metabolic Panel Stat Prothrombin Time INR Stat 02/11/20 03:42 CT LE LT w con Stat Discontinued Medications Hydromorphone HCl (Dilaudid) 0.5 mg IV NOW ONE Stop: 02/11/20 03:43 Hydromorphone HCl (Dilaudid) 0.5 mg IV NOW ONE Stop: 02/11/20 03:45 Ondansetron HCl (Zofran Odt Prepack) 1 bottle MISC SEEINSTR ONE Stop: 02/11/20 05:50 Last Admin: 02/11/20 05:59 Dose: 1 bottle Documented by: Oxycodone/Acetaminophen (Endocet 5/325 Prepack) 1 bottle MISC SEEINSTR ONE Stop: 02/11/20 05:51 Last Admin: 02/11/20 05:59 Dose: 1 bottle Documented by: Vital Signs Vital signs: Vital Signs - 8 hr 02/11/20 03:15 Temperature 98.4 F Pulse Rate 100 H Respiratory Rate 19 Blood Pressure 169/81 H Pulse Oximetry 97 MDM - Extremity Injury (Lower) Medical Records Attestation: I reviewed the patient's medical records. Lab Data Attestation: I reviewed the patient's lab results. Lab results narrative: H&H at 13.7/40.4 INR therapeutic at 2.6 Result diagrams: 02/11/20 03:30 02/11/20 03:30 Labs: Lab Results 02/11/20 02/11/20 02/11/20 Range/Units 03:30 03:30 03:30 WBC 12.6 H (4.5-11.0) X10^3/uL RBC 4.78 (4.0-5.2) X10^6/uL Hgb 13.7 (12.0-16.0) g/dL Hct 40.4 (36-46) % MCV 84.4 (80-100) fL MCH 28.6 (26-34) PG MCHC 33.9 (30-36) % RDW 13.5 (11.6-14.8) % Plt Count 281 (150-400) X10^3/uL Neut % (Auto) 60.9 (50-75) % Lymph % (Auto) 23.7 L (25-40) % [place] % (Auto) 11.0 (3-14) % Eos % (Auto) 3.9 (2-4) % Baso % (Auto) 0.5 (0-2) % Neut # (Auto) 7700 H (2357-5925) /uL Lymph # (Auto) 3000 (1759-1392) /uL [place] # (Auto) 1400 H (0-900) /uL Eos # (Auto) 500 H (0-450) /uL Baso # (Auto) 100 (0-100) /uL PT 29.3 H (10.1-12.7) SECONDS INR 2.6 H (0.9-1.3) Sodium 135 L (137-145) mmol/L Potassium 3.5 (3.4-5.1) mmol/L Chloride 98 (98-107) mmol/L Carbon Dioxide 28 (22-32) mmol/L BUN 15 (7-17) mg/dL Creatinine 0.80 (0.52-1.04) mg/dL Estimated GFR > 60.0 (>60) mL/min BUN/Creatinine Ratio 18.8 (6-22) Glucose 131 H (80-110) mg/dL Calcium 9.8 (8.4-10.2) mg/dL Total Bilirubin 0.7 (0.2-1.3) mg/dL AST 39 H (14-36) IU/L ALT 26 (<35) IU/L Alkaline Phosphatase 83 (38-126) U/L Total Protein 7.2 (6.3-8.2) g/dL Albumin 4.5 (3.5-5.0) g/dL Globulin 2.7 (1.7-4.1) g/dL Albumin/Globulin Ratio 1.7 (1.0-2.8) Imaging Data CT left lower extremity: Radiologist's Impression: Along the fascia of the proximal anterior compartment there is acute hematoma measuring 4.1 x 2.5 x 5.0 internally there is a fluid fluid level. Moderate subcutaneous edema within the leg. No acute fracture. Signed on February 11, 2020 5:[address] Lisa Frausto [facility] Narrative Medical decision making narrative: Patient presents with increasing left calf pain after a fall 3 days ago with concern for developing hematoma with an INR of 2.6. Despite complaints that she is unable to walk at all she actually is able to but a slight amount of pressure on leg and insisted on walking down the rod to the CT scanner. Results shared with patient. At this point it does not appear to be actively expanding nor causing acute compression related problems. Her INR has come down from 5 to 2.6 and with the prosthetic valve should likely stay in that range. She is interested in having a small amount of narcotic to have available at home for severe pain and also requests some Zofran to take with the narcotic. We reviewed appropriate use of narcotics, complications including increased risk of falls confusion and constipation. We also clearly reviewed signs and symptoms of developing compartment syndrome as well as infection and anticipated course of resolution of the large amount of blood that will need to be reabsorbed. After follow-up with her primary care physician next week to make sure that she is improving she is safe for home discharge Discharge Plan Departure Patient Disposition: Home Clinical Impression: Hematoma of lower leg Instructions: Acute Compartment Syndrome Activity Restrictions/Additional Instructions: Thank you for coming in today. You do have a moderate size hematoma in your leg corresponding with the area of pain. You do not have compartment syndrome and I have included information on this so that you can be aware of developing symptoms and no that you do need to return if you develop any of these. I would expect at least 4-6 weeks for your body to reabsorbed the amount of blood that is in your leg. You likely will have swelling for much of that timel. Most of the blood will track down, so you will notice the majority of the beautiful black blue and green coloration over your ankle and foot. For pain control, you can use Tylenol for mild pain and .5-1 Percocet for worsening pain. Percocet is a narcotic and can increase your risk of falling and will make you constipated. Please make sure you are using a stool softener or extra fiber to prevent constipation. I have also given you as Zofran and you can take .5-1 along with the Percocet to avoid nausea. Please call your primary care doctor's office and let them know your in the emergency room with a large hematoma that needs further evaluation. I have given you a copy of the CT scan report to share with your physician. Your INR was 2.6 today. If you find that you are getting worse, develop any fevers, redness chills or other concerning signs particularly specific to compartment syndrome you do need to return to the emergency department I wish you the best Prescriptions: No Action diazepam [Valium] 2 mg tablet 2 mg PO TID PRN (Reason: muscle spasm) Qty: 10 RF: 0
[2020-02-11] MEDS: ONDANSETRON 4 MG ODT PREPACK 1 BOTTLE MISC (05:59)
[2020-02-11] MEDS: OXYCODONE/APAP 5/325 PREPACK 1 BOTTLE MISC (05:59)
[2020-02-11 06:02] VITALS: BP 143/67; PULSE 87; RESP 17; O2SAT 97
== END 2020-02-11 06:10 | disposition home or self-care (01) ==
PROVIDERS: Emergency Provider Emergency Medicine
DX: S80.12XA Contusion of left lower leg, initial encounter (principal); W19.XXXA Unspecified fall, initial encounter; Z95.5 Presence of coronary angioplasty implant and graft; Z79.01 Long term (current) use of anticoagulants
CPT/HCPCS: 36415; 73701; 80053; 85025; 85610; 99284; Q9967

== ENCOUNTER → 2020-09-18 14:56 | Outpatient (CLI) | payer OTHER, SELFPAY ==
--- NOTE | 2020-09-18 14:57 | DI.ECHO.S_ITS ---
[facility] +---------+ : : [address] : : : : [id number] : : : : Phone: [phone] Echocardiogram Report + + :Name: TROY CORRALES Study Date: 09/18/2020 Height: 62 in : :[facility] ReadingLocation: Weight: 150 lb : : Gender: Female BSA: 1.7 m2 : :: 1945 Age: 74 yrs BP: 135/73 mmHg: :Reason For Study: PROSTHETIC HEART VALVE : :Ordering Physician: SOSA, : :HAO Performed By: Ondina Walton : :Referring: HAO SWAN : + + Interpretation Summary The left ventricle is normal in size and wall thickness. The ejection fraction is estimated to be 55-60%. Diastolic parameters suggest a relaxation abnormality of the left ventricle, consistent with probable normal filling pressures. The right ventricle is normal in size and function. Pulmonary artery pressures cannot be estimated because of the lack of a measurable TR jet velocity but the IVC suggests a CVP of around 8 mmHg. The left atrial size is normal. Right atrial size is normal. There is mild mitral regurgitation. There is a mechanical aortic valve. The peak aortic velocity is 2.5 m/sec. There is no other significant valvular heart disease. The aortic root is not well visualized but is probably normal size. Procedure: A two-dimensional transthoracic echocardiogram with color flow and Doppler was performed. The study quality was technically adequate. There is no prior echocardiogram noted for this patient. The patient was in sinus rhythm with heart rates between 64-88 bpm during the exam. Left Ventricle: The left ventricle is normal in size and wall thickness. The ejection fraction is estimated to be 55-60%. Diastolic parameters suggest a relaxation abnormality of the left ventricle, consistent with probable normal filling pressures. Right Ventricle: The right ventricle is normal in size and function. Atria: The left atrial size is normal. Right atrial size is normal. There is no Doppler evidence for an interatrial shunt. Mitral Valve: The mitral valve is normal in structure and function. There is mild mitral annular calcification. There is mild mitral regurgitation. Aortic Valve: There is a mechanical aortic valve. The peak aortic velocity is 2.5 m/sec. The aortic valve mean gradient is 13 mmHg. There is trace aortic regurgitation. Tricuspid Valve: The tricuspid valve is normal in structure and function. There is trace tricuspid regurgitation. Pulmonary artery pressures cannot be estimated because of the lack of a measurable TR jet velocity but the IVC suggests a CVP of around 8 mmHg. Pulmonic Valve: The pulmonic valve is not well visualized. There is no pulmonic valvular regurgitation. There is no other significant valvular heart disease. Great Vessels: The aortic root is not well visualized but is probably normal size. The ascending aorta could not be visualized. The IVC is dilated (diameter is greater than 2.1 cm) yet it collapses greater than 50% with a sniff. This suggests a right atrial pressure of 8 mm Hg. Pericardium/ Pleura There is no pericardial effusion. There is no pleural effusion. MMode/2D Measurements & Calculations LVIDd: 4.5 cm LVOT diam: 2.0 cm LVIDs: 3.2 cm Ao Arch Diam (Prox Trans): 2.7 cm FS: 28.3 % EPSS: 1.2 cm IVSd: 0.86 cm LVPWd: 0.86 cm LV watson. diameter/BSA (cm/m^2): 2.6 LV sys. diameter/BSA (cm/m^2): 1.9 LA A2 area: 17.4 cm2 RA long axis: 4.7 cm LA A4 area: 15.2 cm2 RA area: 13.7 cm2 LA length (vol): 4.8 cm RA vol: 34.1 ml LA vol: 46.4 ml RA : 20.2 ml/m2 LA vol index: 27.4 ml/m2 IVC diam: 2.1 cm RVD1 (basal): 2.2 cm TAPSE: 2.0 cm Doppler Measurements & Calculations Ao V2 max: 249.6 cm/sec LVOT Max Jose: 72.0 cm/sec Ao V2 mean: 164.0 cm/sec LV V1 max P.1 mmHg Ao max P.9 mmHg LV V1 VTI: 15.7 cm Ao mean P.5 mmHg TERE(I,D): 0.96 cm2 Ao V2 VTI: 50.9 cm TERE(V,D): 0.90 cm2 sev ratio: 0.31 TERE indexed to BSA (cm^2/m^2): 0.57 MV E max jose: 72.8 cm/sec PA V2 max: 74.3 cm/sec MV A max jose: 110.8 cm/sec PA V2 mean: 47.2 cm/sec MV E/A: 0.66 PA mean P.0 mmHg Med Peak E' Jose: 5.8 cm/sec PA pr(Accel): 55.0 mmHg E/E' med: 12.6 Lat Peak E' Jose: 9.5 cm/sec E/E' lat: 7.7 E/e' average: 10.1 MV dec time: 0.26 sec SV(LVOT): 48.7 ml Reading Physician:07:34 PM
== END ==
PROVIDERS: PCP Internal Medicine; Referring Provider Internal Medicine; Visit Provider Internal Medicine
DX: I34.0 Nonrheumatic mitral (valve) insufficiency (principal); Z95.2 Presence of prosthetic heart valve
CPT/HCPCS: 93306

== ENCOUNTER → 2022-02-19 08:08 | Outpatient (CLI) | payer OTHER, SELFPAY ==
[2022-02-19 08:50] LABS: INR 3.1 (0.9-1.3)
== END ==
PROVIDERS: PCP Internal Medicine; Referring Provider Internal Medicine Geriatric Medicine; Visit Provider Internal Medicine Geriatric Medicine
DX: Z95.2 Presence of prosthetic heart valve (principal)
CPT/HCPCS: 36415; 85610

== ENCOUNTER 2022-04-06 11:58 | Emergency (ER) | payer OTHER, SELFPAY ==
[2022-04-06 12:20] VITALS: BP 187/79; PULSE 78; RESP 18; TEMP 36.6; O2SAT 96; BMI 27.0
--- NOTE | 2022-04-06 12:20 | DI.RAD.S_ITS ---
PROCEDURE: XR WRIST LT MIN 3V INDICATIONS: injury TECHNIQUE: 4 views of the wrist were acquired. COMPARISON: None. FINDINGS: Bones: No suspicious bony lesions. Mild generalized osteopenia. Chronic ununited ulnar styloid fracture. Moderate degenerative changes seen at the triscaphe joint and the 1st carpometacarpal joint. Scaphoid view: Questionable lucency at the waist of the scaphoid. Soft tissues: Chondrocalcinosis. IMPRESSION: Questionable lucency at the waist of the scaphoid could represent a nondisplaced fracture. Recommend correlation for point tenderness. Repeat radiographs could be performed in 7-10 days for further evaluation. Dictated by: Frederick Smith M.D. on 04/06/2022 at 11:57 Approved by: Frederick Smith M.D. on 04/06/2022 at 12:00
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
--- NOTE | 2022-04-06 14:18 | PC.NURSE ---
pt walked out of the ED prior to evaluation by . DR. Jacobo and this RN Spoke with pt by phone explaining the importance of having possible wrist fx evaluated. PT states she lived in [place] and has difficulty getting a ride. Explained to the pt that she could go another hospital if more convenient. At this point I transferred the call to DR Jacobo.
== END 2022-04-06 14:28 | disposition left against medical advice (07) ==
PROVIDERS: Emergency Provider Emergency Medicine; PCP Student in an Organized Health Care Education/Training Program
DX: S62.102A Fracture of unspecified carpal bone, left wrist, initial encounter for closed fracture (principal); W05.1XXA Fall from non-moving nonmotorized scooter, initial encounter
CPT/HCPCS: 73110; 99283

== ENCOUNTER → 2022-04-12 13:43 | Outpatient (CLI) | payer OTHER, SELFPAY ==
--- NOTE | 2022-04-12 13:45 | DI.MRI.S_ITS ---
PROCEDURE: MR WRIST LT WO CON INDICATIONS: CLOSED NONDISPLACED FRACTURE WRIST TECHNIQUE: Noncontrast coronal proton density fast spin echo and T2 fast spin echo with fat saturation; coronal 3-D gradient echo, axial T1 spin echo and T2 fast spin echo with fat saturation, sagittal T1 spin echo through the wrist. COMPARISON: , CR, XR WRIST LT MIN 3V, 04/06/2022, 12:22. 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 Bones and cartilage: No acute osseous fracture or trabecular bone injury. The scaphoid is intact. Cartilage loss is seen at the radiocarpal joint with associated joint space narrowing. Subchondral cystic changes and subchondral edema are seen at the proximal ulnar aspect of the lunate. There is neutral ulnar variance. A chronic ununited ulnar styloid fracture is present. Mild degenerative spurring at the 1st carpometacarpal joint and mild degenerative changes of the triscaphe joint. The carpal bones are normally aligned. No evidence for avascular necrosis. Carpal ligaments: The scapholunate and lunotriquetral ligaments appear intact. On sagittal images, the pisohamate ligament appears intact. Triangular fibrocartilage complex: Full-thickness defect is seen in the central triangle fibrocartilage disc. The ulnar styloid lamina is continuous with the ulnar styloid fracture fragment. A small distal radioulnar joint effusion is present. Tendons and soft tissues: The carpal tunnel structures appear normal, including the median nerve. The ulnar nerve appears normal within Guyon's canal. There is mild to moderate tendinosis and tenosynovitis of the extensor carpi ulnaris tendon. The remaining extensor tendon compartments demonstrate normal morphology, without pathologic tendon sheath fluid. A ganglion cyst is seen along the volar aspect of the 3rd and 4th metatarsal bases measuring approximately 5 x 3 x 9 mm. A ganglion cyst dorsal to the scapholunate articulation measures 6 x 3 by 2 mm. IMPRESSION: 1. No acute trabecular bone injury or fracture. Scaphoid is intact. Chronic ununited ulnar styloid fracture is present. 2. Full-thickness tearing of the central triangular fibrocartilage disc. The ulnar styloid attachment is continuous with the ununited ulnar styloid fracture fragment. Small distal radioulnar joint effusion. 3. Mild to moderate extensor carpi ulnaris tenosynovitis and tendinosis. 4. Subchondral cystic changes and edema at the proximal ulnar aspect of the lunate. There is neutral ulnar variance. However, ulnar abutment syndrome is not excluded. 5. Degenerative changes at the radiocarpal, triscaphe, and 1st carpometacarpal joints. 6. Small ganglion cysts measuring up to 6 mm dorsal to the scapholunate articulation, and 9 mm at the volar aspect of the 3rd and 4th metatarsal bases deep to the carpal tunnel Dictated by: Frederick Smith M.D. on 04/14/2022 at 8:40 Approved by: Frederick Smith M.D. on 04/14/2022 at 9:03
== END ==
PROVIDERS: PCP Internal Medicine Geriatric Medicine; Referring Provider Physician Assistant Medical; Visit Provider Physician Assistant Medical
DX: S62.025A Nondisplaced fracture of middle third of navicular [scaphoid] bone of left wrist, initial encounter for closed fracture (principal); S63.592A Other specified sprain of left wrist, initial encounter; M65.832 Other synovitis and tenosynovitis, left forearm; M67.432 Ganglion, left wrist
CPT/HCPCS: 73221